=== PATIENT | male | born 1930 | race Caucasian/White ===

== ENCOUNTER → 2017-10-11 | Outpatient (CLI) | payer MEDICARE ==
--- NOTE | 2017-10-11 16:01 | RADIOLOGY REPORT (SQ) ---
EXAM DESCRIPTION: BARIUM SWALLOW PHARYNX ONLY COMPLETED DATE/TIME: 10/11/2017 9:58 am REASON FOR STUDY: CERVICAL DYSPHAGIA (R13.19) R13.19 OTHER DYSPHAGIA COMPARISON: None. TECHNIQUE: Under fluoroscopic guidance, patient ingested effervescent granules followed by thick and thin barium. Fluoroscopic spot images and routine radiographic images acquired and stored on PACS. 12 MM BARIUM TABLET GIVEN: The patient swallowed a 12 mm barium tablet without difficulty. The table t stuck in the upper esophagus briefly before passing through the esophagus into the stomach. LIMITATIONS: None. FLUOROSCOPY TIME: FLUORO TIME: Fluoro time 2.4 minutes 11 images saved to PACS. FINDINGS: NEUROMUSCULAR COORDINATION OF SWALLOW: Normal. No aspiration. ESOPHAGEAL MOTILITY: Mild tertiary contractions in the distal esophagus noted. ESOPHAGEAL MUCOSA: Normal mucosa without masses or ulceration. There is a moderately sized Zenker's diverticulum present. Just below the Zenker's diverticulum there is a mild narrowing, however this a nish does not impede the passage of 12 mm tablet significantly. GASTRO-ESOPHAGEAL JUNCTION: There is a small hiatal hernia present. Gastroesophageal reflux to level of the clavicles was noted during the study. NON-GI TRACT STRUCTURES: No significant finding. OTHER: No other significant finding. IMPRESSION: MODERATELY SIZED ZENKER'S DIVERTICULUM WITH ASSOCIATED MILD NARROWING OF THE UPPER ESOPH LD. SMALL HIATAL HERNIA. GASTROESOPHAGEAL REFLUX. RECOMMENDATION: NONE COMMENT: NONE Quality ID [id number]: Final reports for procedures using fluoroscopy that document radiation exposure ac mimi, or exposure time and number of fluorographic images (if radiation exposure indices are not avail able) TECHNICAL DOCUMENTATION: JOB ID: [id number] All Rights Reserved
== END ==
LOC: RAD 09:07
PROVIDERS: ATTEND Otolaryngology
DX: R13.19 Other dysphagia (principal); K44.9 Diaphragmatic hernia without obstruction or gangrene; K21.9 Gastro-esophageal reflux disease without esophagitis
CPT/HCPCS: 74210

== ENCOUNTER → 2019-02-27 | Outpatient (CLI) | payer MEDICARE ==
[2019-02-27 10:35] LABS: ABSOLUTE EOSINOPHILS # (AUTO) 0.1 10^3/uL (0.0-0.6); ABSOLUTE LYMPHOCYTES (AUTO) 1.1 10^3/uL (0.5-4.7); ABSOLUTE MONOCYTES (AUTO) 0.4 10^3/uL (0.1-1.4); ABSOLUTE NEUT (AUTO) 3.1 10^3/uL (1.7-8.2); BASOPHILS % (AUTO) 0.4 % (0-2); EOSINOPHILS % (AUTO) 1.9 % (0-6); HEMATOCRIT 35.6 % (37.9-51.0); HEMOGLOBIN 12.7 g/dL (13.5-17.0); LYMPHOCYTES % (AUTO) 22.9 % (13-45); MEAN CORPUSCULAR HEMOGLOBIN 31.9 pg (27.0-33.4); MEAN CORPUSCULAR HGB CONC 35.6 g/dL (32.0-36.0); MEAN CORPUSCULAR VOLUME 90 fl (80-97); MONOCYTES % (AUTO) 8.4 % (3-13); PLATELET COUNT 226 10^3/uL (150-450); RED BLOOD COUNT 3.97 10^6/uL (4.35-5.55); RED CELL DISTRIBUTION WIDTH 13.7 % (11.5-14.0); SEGMENTED NEUTROPHILS % (AUTO) 66.4 % (42-78); TOTAL CELLS COUNTED % (AUTO) 100 %; WHITE BLOOD COUNT 4.7 10^3/uL (4.0-10.5)
[2019-02-27 10:38] LABS: APPEARANCE,URINE CLEAR; BILIRUBIN,URINE NEGATIVE (NEGATIVE); COLOR,URINE STRAW; GLUCOSE, URINE NEGATIVE (NEGATIVE); KETONES,URINE NEGATIVE (NEGATIVE); LEUKOCYTE ESTERASE,URINE NEGATIVE (NEGATIVE); NITRITE,URINE NEGATIVE (NEGATIVE); PROTEIN,URINE NEGATIVE (NEGATIVE); URINE SPECIFIC GRAVITY 1.005; UROBILINOGEN,URINE NEGATIVE mg/dL (<2.0)
[2019-02-27 10:55] LABS: ALANINE AMINOTRANSFERASE 36 U/L (21-72); ALKALINE PHOSPHATASE 43 U/L (38-126); ANION GAP 11 (5-19); ASPARTATE AMINO TRANSFERASE 20 U/L (17-59); BILIRUBIN,DIRECT 0.3 mg/dL (0.0-0.4); BILIRUBIN,TOTAL 0.3 mg/dL (0.2-1.3); BLOOD UREA NITROGEN 15 mg/dL (7-20); CALCIUM 9.9 mg/dL (8.4-10.2); CARBON DIOXIDE 28 mmol/L (22-30); CHLORIDE 99 mmol/L (98-107); GLUCOSE 134 mg/dL (75-110); POTASSIUM 3.8 mmol/L (3.6-5.0); TOTAL PROTEIN 7.1 g/dL (6.3-8.2)
[2019-02-27 11:11] LABS: FREE T3 3.45 pg/mL (2.77-5.27); FREE T4 (FREE THYROXINE) 1.26 ng/dL (0.78-2.19)
[2019-02-27 11:24] LABS: THYROID STIMULATING HORMONE 2.58 uIU/mL (0.47-4.68)
[2019-03-04 11:42] LABS: RENIN ACTIVITY <0.167 ng/mL/hr (0.167-5.38)
== END ==
LOC: OD 09:36
PROVIDERS: ATTEND Internal Medicine Nephrology
DX: I10 Essential (primary) hypertension (principal)
CPT/HCPCS: 36415; 80053; 81001; 82088; 82533; 83735; 84244; 84439; 84443; 84481; 85025

== ENCOUNTER 2020-01-07 01:12 | Emergency (ER) | payer MEDICARE ==
[2020-01-07 02:30] LABS: ABSOLUTE EOSINOPHILS # (AUTO) 0.1 10^3/uL (0.0-0.6); ABSOLUTE LYMPHOCYTES (AUTO) 1.4 10^3/uL (0.5-4.7); ABSOLUTE MONOCYTES (AUTO) 0.5 10^3/uL (0.1-1.4); BASOPHILS % (AUTO) 0.5 % (0-2); EOSINOPHILS % (AUTO) 2.1 % (0-6); HEMATOCRIT 34.5 % (37.9-51.0); HEMOGLOBIN 12.2 g/dL (13.5-17.0); LYMPHOCYTES % (AUTO) 27.5 % (13-45); MEAN CORPUSCULAR HEMOGLOBIN 31.8 pg (27.0-33.4); MEAN CORPUSCULAR HGB CONC 35.4 g/dL (32.0-36.0); MEAN CORPUSCULAR VOLUME 90 fl (80-97); MONOCYTES % (AUTO) 10.6 % (3-13); PLATELET COUNT 216 10^3/uL (150-450); RED BLOOD COUNT 3.85 10^6/uL (4.35-5.55); SEGMENTED NEUTROPHILS % (AUTO) 59.3 % (42-78); TOTAL CELLS COUNTED % (AUTO) 100 %; WHITE BLOOD COUNT 5.1 10^3/uL (4.0-10.5)
[2020-01-07 02:36] LABS: INTERNATIONAL RATION (INR) 1.07
[2020-01-07 02:40] LABS: ALBUMIN 4.1 g/dL (3.5-5.0); ALKALINE PHOSPHATASE 41 U/L (38-126); ANION GAP 9 (5-19); ASPARTATE AMINO TRANSFERASE 19 U/L (17-59); BILIRUBIN,TOTAL 0.5 mg/dL (0.2-1.3); BLOOD UREA NITROGEN 19 mg/dL (7-20); CALCIUM 9.6 mg/dL (8.4-10.2); CARBON DIOXIDE 27 mmol/L (22-30); CHLORIDE 103 mmol/L (98-107); CREATINE KINASE 32 U/L (55-170); GLUCOSE 144 mg/dL (75-110); POTASSIUM 3.8 mmol/L (3.6-5.0); TOTAL PROTEIN 7.1 g/dL (6.3-8.2)
[2020-01-07 02:42] LABS: APPEARANCE,URINE CLEAR; BILIRUBIN,URINE NEGATIVE (NEGATIVE); COLOR,URINE STRAW; GLUCOSE, URINE NEGATIVE (NEGATIVE); KETONES,URINE NEGATIVE (NEGATIVE); LEUKOCYTE ESTERASE,URINE NEGATIVE (NEGATIVE); NITRITE,URINE NEGATIVE (NEGATIVE); PROTEIN,URINE NEGATIVE (NEGATIVE); URINE SPECIFIC GRAVITY 1.005; UROBILINOGEN,URINE NEGATIVE mg/dL (<2.0)
[2020-01-07 02:58] LABS: CREATINE KINASE MB 0.62 ng/mL (<4.55)
[2020-01-07 02:59] LABS: TROPONIN I < 0.012 ng/mL
--- NOTE | 2020-01-07 07:54 | ER Document Report ---
Entered by BRYCE AMARO SCRIBE 01/07/20 0749 Acting as scribe for:CHANDRA CHRISTENSEN, ED General - General Chief Complaint: Blood Pressure Problem Stated Complaint: WEAKNESS Time Seen by Provider: 01/07/20 07:07 Primary Care Provider: NEIL MOY MD [Primary Care Provider] - Follow up as needed Information source: Patient, Relative Cannot obtain history due to: Other Notes: This 89 year old male patient presents to the emergency department today with complaints that his "left leg wouldn't work". Family reports that last night around 10:45 PM the patient was getting out of his recliner to go to bed and his "left leg would not hold himself up". There was no left upper extremity involvement or speech involvement. Patient is right-hand dominant. Patient complains of dizziness, a headache, and his vision looks more fuzzy than normal. Patient denies the usage of any blood thinning medications. TRAVEL OUTSIDE OF THE [place] IN LAST 30 DAYS: No - Related Data Allergies/Adverse Reactions: No Known Allergies Allergy (Verified 01/07/20 01:48) Home Medications: carvedilol, sulfamethoxazole, citalopram, bethanechol, montelukast, losartan, buspirone, tamsulosin, metformin, lorazepam, omeprazzole. Past Medical History - General Information source: Patient, Relative Cannot obtain history due to: Other - Social History Smoking Status: Never Smoker Cigarette use (# per day): No Frequency of alcohol use: None Drug Abuse: None Lives with: Family Family History: Reviewed & Not Pertinent Patient has suicidal ideation: No Patient has homicidal ideation: No Review of Systems - Review of Systems Constitutional: No symptoms reported EENT: See HPI, Double vision Cardiovascular: See HPI, Dizziness Respiratory: No symptoms reported Gastrointestinal: No symptoms reported Genitourinary: No symptoms reported Male Genitourinary: No symptoms reported Musculoskeletal: No symptoms reported Skin: No symptoms reported Hematologic/Lymphatic: No symptoms reported Neurological/Psychological: See HPI, Headaches, Other - "left leg wouldn't work" -: Yes All other systems reviewed and negative Physical Exam - Vital signs Vitals: Temp Pulse Resp BP Pulse Ox 98.0 F 97 20 230/120 H 98 01/07/20 01:12 01/07/20 01:12 01/07/20 01:12 01/07/20 01:12 01/07/20 01:12 - Notes Notes: Physical Exam: General: Alert, appears well. HEENT: Normocephalic. Atraumatic. PERRL. Extraocular movements intact. Oropharynx clear. Neck: Supple. Non-tender. Respiratory: No respiratory distress. Clear and equal breath sounds bilaterally. Cardiovascular: Regular rate and rhythm. Abdominal: Normal Inspection. Non-tender. No distension. Normal Bowel Sounds. Back: No gross abnormalities. Extremities: Moves all four extremities. Upper extremities: Normal inspection. Normal ROM. Lower extremities: Normal inspection. No edema. Normal ROM. Neurological: Normal cognition. AAOx4. Normal speech. Psychological: Normal affect. Normal Mood. Skin: Warm. Dry. Normal color. Course - Re-evaluation Re-evalutation: 01/07/20 15:53 MDM Delightful 89 year old male who is right handed. He lives at home and gets around to some degree with a walker. Left side weakness last evening and falling to the right. His NIHSS here is 0. 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 Due to Ct of brain showing subacute CVA [facility] was contacted and their stroke attending (Dr. Arroyo)was consulted regarding his presentation and he agrees no TPA for this gentleman. He feels aspirin is appropriate which is administered here. He further thinks the hospitalist at [facility] should admit and I have contacted him (Dr. Ring). The hospitalist service at [facility] has graciously accepted the pt in transfer. Consideration was given to TPA administration but due to complete resolution of symptoms he was excluded from this potent medicine being given to him. I have handed this pt over to Dr. Head at 1600. - Vital Signs Vital signs: Temp Pulse Resp BP Pulse Ox 97.8 F 75 12 227/111 H 98 01/07/20 14:31 01/07/20 10:00 01/07/20 14:31 01/07/20 14:31 01/07/20 14:31 - Laboratory Result Diagrams: 01/07/20 02:11 01/07/20 02:11 Laboratory results interpreted by me: 01/07/20 01/07/20 01/07/20 02:11 02:11 02:11 RBC 3.85 L Hgb 12.2 L Hct 34.5 L Glucose 144 H Creatine Kinase 32 L TSH 5.51 H - Diagnostic Test Radiology reviewed: Reports reviewed - EKG Interpretation by Me EKG shows normal: Sinus rhythm Rate: Normal Rhythm: NSR - NSR Nl Gooding 1st degree AV block no st elevation or depression my interpretation. Critical Care Note - Critical Care Note Total time excluding time spent on procedures (mins): 30 Discharge - Discharge Clinical Impression: TIA (transient ischemic attack) Hypertension Qualifiers: Hypertension type: unspecified Qualified Code(s): I10 - Essential (primary) hypertension Condition: Fair Disposition: [facility] Referrals: NEIL MOY MD [Primary Care Provider] - Follow up as needed I personally performed the services described in the documentation, reviewed and edited the documentation which was dictated to the scribe in my presence, and it accurately records my words and actions.
[2020-01-07] MEDS ORDERED: HYDRALAZINE HCL INJ/PF 20 MG/1 ML SDV IV ONE ×2 (08:25→11:23)
--- NOTE | 2020-01-07 08:44 | RADIOLOGY REPORT (SQ) ---
EXAM DESCRIPTION: CT HEAD WITHOUT COMPLETED DATE/TIME: 01/07/2020 8:23 am REASON FOR STUDY: dizziness COMPARISON: None. TECHNIQUE: Axial images acquired through the brain without intravenous contrast. Images reviewed wi th bone, brain and subdural windows. Additional sagittal and coronal reconstructions were generated. Images stored on PACS. All CT scanners at this facility use dose modulation, iterative reconstruction, and/or weight based d osing when appropriate to reduce radiation dose to as low as reasonably achievable (ALARA). [facility]: Dose Right [facility]: CareDose [facility]: Dose Right [facility]: Teradose 4D [facility]: [employer] RADIATION DOSE: CT Rad equipment meets quality standard of care and radiation dose reduction techniq ues were employed. CTDIvol: 53.2 mGy. DLP: 1070 mGy-cm. LIMITATIONS: None. FINDINGS: There is a geographic area of hypoattenuation in the right occipital lobe associated with effacement of cerebral sulci and loss of the hong-white matter differentiation that could represent a n acute infarct. The area of hypoattenuation within the periventricular white matter adjacent to the frontal horn of the right lateral ventricle could represent the sequela of chronic ischemia. The fo amie area of hypoattenuation in the right basal ganglia could represent a chronic lacunar infarct or p rominent Virchow Zak space. There is no acute intracranial hemorrhage, extra-axial fluid collection, mass effect or midline shift . There is no effacement of the basal subarachnoid cisterns. The globes are aphakic. The orbits are intact. There is no fracture of the calvarium. The paranasa l sinuses are clear. IMPRESSION: Geographic area of hypoattenuation in the right occipital lobe associated with effacemen t of the cerebral sulci and loss of the hong-white matter differentiation could represent an acute in farct. Consider correlation with a MRI. COMMENT: Quality ID # [id number]: Final reports with documentation of one or more dose reduction techniques (e.g., Automated exposure control, adjustment of the mA and/or kV according to patient size, use of iterative reconstruction technique) TECHNICAL DOCUMENTATION: JOB ID: [id number] 2010 [employer]- All Rights Reserved Reading location - IP/workstation name: [email or web address]
[2020-01-07] MEDS ORDERED: ASPIRIN 325 MG TABLET PO ONE (09:55)
--- NOTE | 2020-01-07 18:30 | ER Document Report ---
Doctor's Note Notes: 01/07/20 18:29 Care of this patient was turned over to me did course of my shift. In short, this patient has had a TIA. He also has extremely labile blood pressure. He has been markedly hypertensive intermittently here in the ER. According to family he has required further testing, is actually supposed to be sent for t esting to [facility], but it was noted that the patient can have this testing performed at [facility]. For this reason, it is appropriate to transfer this patient at this time. I went and evaluated him, he is stable, has no acute complaints or concerns.
[2020-01-07 19:16] VITALS: BP 199/97
--- NOTE | 2020-01-07 19:41 | EKG REPORT ---
SEVERITY:- ABNORMAL ECG - SINUS RHYTHM FIRST DEGREE AV BLOCK : Confirmed by: Luica Barajas MD 07-Jan-2020 19:40:51
== END 2020-01-07 19:30 | disposition short-term general hospital (02) ==
LOC: ER 01:12
DX: G45.9 Transient cerebral ischemic attack, unspecified (principal); H53.2 Diplopia; R42 Dizziness and giddiness; R51 Headache; R53.1 Weakness; I10 Essential (primary) hypertension; I44.0 Atrioventricular block, first degree; Z79.899 Other long term (current) drug therapy; Z79.84 Long term (current) use of oral hypoglycemic drugs
CPT/HCPCS: 93005; 96376; 99291; 96374; 36415; 82553; 82550; 83735; 84443; 85025; 85610; 80053; 81001; 84484; 70450; 93010; A9270; J0360